=== PATIENT | male | born 1990 | race Caucasian/White ===

== ENCOUNTER 2017-01-16 10:58 | Emergency (ER) | payer SELFPAY ==
[~2017-01-16] VITALS: Ht 180.3 cm; Wt 114.6 kg
[2017-01-16 11:04] VITALS: TEMP 37.4; Ht 180.3 cm; Wt 114.6 kg
[2017-01-16 11:35] LABS: HEMATOCRIT 43.6 % (42-52); MEAN CELL VOLUME 84.3 fL (80-100); MEAN CORPUSCULAR HEMOGLOBIN 30.6 pg (25-34); MEAN CORPUSCULAR HGB CONC 36.2 g/dl (32-36); MEAN PLATELET VOLUME 9.6 fL (7.4-10.4); PLATELET COUNT 175 K/uL (130-400); RED BLOOD COUNT 5.17 M/uL (4.7-6.1); WHITE BLOOD COUNT 10.38 K/uL (4.8-10.8)
--- NOTE | 2017-01-16 11:43 | DIAGNOSTIC IMAGING REPORT ---
CHEST ONE VIEW PORTABLE CLINICAL HISTORY: cp dyspnea COMPARISON STUDY: No previous studies for comparison. FINDINGS: The bones soft tissues and hemidiaphragms are normal. The cardiomediastinal silhouette is normal. The lungs are clear. The pulmonary vasculature is normal. IMPRESSION: Negative chest. The above report was generated using voice recognition software. It may contain grammatical, syntax or spelling errors. Electronically signed by: Patric Rashid M.D. 01/16/2017 11:42 AM Dictated Date/Time: 01/16/2017 11:42 AM
[2017-01-16] MEDS ORDERED: ASPI81TA28 PO (11:44)
[2017-01-16 11:46] LABS: PROTHROMBIN TIME (PATIENT) 11.2 SECONDS (9.0-12.0)
[2017-01-16 11:53] LABS: BUN/CREATININE RATIO 13.1 (10-20); CALCIUM 8.9 mg/dl (8.5-10.1); CREATININE 0.98 mg/dl (0.60-1.40); POTASSIUM 3.8 mmol/L (3.5-5.1)
[2017-01-16 11:58] LABS: CKMB/CK RATIO 1.2 (0-3.0)
[2017-01-16] MEDS ORDERED: ALBUTEROL HFA 8 GM INHALER INH STA (12:08)
[2017-01-16] MEDS ORDERED: ALBUT/IPRATROP 3MG/0.5MG NEB 3 ML VIAL INH STA (12:08)
--- NOTE | 2017-01-16 12:10 | EMERGENCY ROOM VISIT NOTE ---
History Report prepared by Dexibe: Tami Geiger Under the Supervision of: Dr. Arnol Christensen M.D. First contact with patient: 12:03 Chief Complaint: CHEST PAIN Stated Complaint: CHEST PAINS, HYPERTENSION Nursing Triage Summary: Pt reports left sided cp x 2 days. Elevated bp. Denies sob. Denies dizziness/lightheadedness. Pt reports h/a yesterday because "I think I was hung over." History of Present Illness The patient is a 26 year old male who presents to the Emergency Room with complaints of intermittent sharp chest tightness that begun 2 days ago. The patient states that he called his PCP to get an appointment today and was referred to come to the ED. The patient was at work when an episode of his chest tightness begun and notes his blood pressure was high there as well. He notes an intermittent cough for the past couple days. The patient notes that he drank alcohol Monday but denies any drug use. The patient takes a baby Aspirin daily. Source of History: patient Onset: 2 days ago Position: chest Quality: other (tightness) Modifying Factors (Relieving): other (none) Associated Symptoms: + cough Review of Systems See HPI for pertinent positives & negatives. A total of 10 systems reviewed and were otherwise negative. Past Medical & Surgical Surgical Problems: (1) S/P tonsillectomy Family History Patient reports no known family medical history. Social History Smoking Status: Never Smoker Alcohol Use: occasionally Drug Use: none Marital Status: single Housing Status: lives with family Occupation Status: employed Current/Historical Medications Scheduled Aspirin (Aspirin Ec), 81 MG PO DAILY Allergies Coded Allergies: Diphenhydramine (Unverified Allergy, Unknown, HIVES, 01/16/17) Physical Exam Vital Signs Date Time Temp Pulse Resp B/P (MAP) Pulse Ox O2 Delivery O2 Flow Rate FiO2 01/16/17 12:22 75 20 157/79 100 Room Air 01/16/17 12:19 70 01/16/17 11:04 37.4 73 18 178/92 98 Room Air Physical Exam GENERAL: Patient is a healthy-appearing well-nourished male HEAD: Normocephalic atraumatic EYES: Ocular movements intact pupils equal and react to light OROPHARYNX mucous membranes are moist no exudates present no erythema or edema present NECK: Supple no nuchal rigidity CHEST: Good equal expansion LUNGS: Clear and equal to auscultation CARDIAC: Normal S1 and S2. ABDOMEN: Soft nontender no guarding BACK: No CVA tenderness EXTREMITIES: No pain upon palpation normal muscle strength in all groups no clubbing cyanosis or edema NEURO: Patient is following commands and answering questions appropriately. Alert and oriented x3 Cranial Nerves 2-12 grossly intact Medical Decision & Procedures ER Provider Diagnostic Interpretation: CHEST ONE VIEW PORTABLE CLINICAL HISTORY: cp dyspnea COMPARISON STUDY: No previous studies for comparison. FINDINGS: The bones soft tissues and hemidiaphragms are normal. The cardiomediastinal silhouette is normal. The lungs are clear. The pulmonary vasculature is normal. IMPRESSION: Negative chest. The above report was generated using voice recognition software. It may contain grammatical, syntax or spelling errors. Electronically signed by: Patric Rashid M.D. 01/16/2017 11:42 AM Dictated Date/Time: 01/16/2017 11:42 AM Laboratory Results 01/16/17 11:24 01/16/17 11:24 Test 01/16/17 11:24 01/16/17 11:30 Red Blood Count 5.17 M/uL (4.7-6.1) Mean Corpuscular Volume 84.3 fL (80-100) Mean Corpuscular Hemoglobin 30.6 pg (25-34) Mean Corpuscular Hemoglobin Concent 36.2 g/dl (32-36) RDW Standard Deviation 38.5 fL (36.4-46.3) RDW Coefficient of Variation 12.5 % (11.5-14.5) Mean Platelet Volume 9.6 fL (7.4-10.4) Prothrombin Time 11.2 SECONDS (9.0-12.0) Prothromb Time International Ratio 1.0 (0.9-1.1) Activated Partial Thromboplast Time 26.3 SECONDS (21.0-31.0) Partial Thromboplastin Ratio 1.0 Anion Gap 7.0 mmol/L (3-11) Est Creatinine Clear Calc Drug Dose 147.0 ml/min Estimated GFR () 122.8 Estimated GFR (Non- 106.0 BUN/Creatinine Ratio 13.1 (10-20) Calcium Level 8.9 mg/dl (8.5-10.1) Total Bilirubin 0.5 mg/dl (0.2-1) Aspartate Amino Transf (AST/SGOT) 24 U/L (15-37) Alanine Aminotransferase (ALT/SGPT) 33 U/L (12-78) Alkaline Phosphatase 80 U/L (45-117) Total Creatine Kinase 252 U/L (39-308) Creatine Kinase MB 3.0 ng/ml (0.5-3.6) Creatine Kinase MB Ratio 1.2 (0-3.0) Total Protein 7.7 gm/dl (6.4-8.2) Albumin 3.9 gm/dl (3.4-5.0) Globulin 3.8 gm/dl (2.5-4.0) Albumin/Globulin Ratio 1.0 (0.9-2) Bedside Troponin I < 0.030 ng/ml (0-0.045) Labs reviewed by ED physician. Medications Administered Medications (Trade) Dose Ordered Sig/Kelly Route Start Time Stop Time Status Last Admin Dose Admin Albuterol/ Ipratropium (Duoneb) 3 ml NOW STAT INH 01/16/17 12:08 01/16/17 12:10 DC 01/16/17 12:12 3 ML Albuterol (Ventolin Hfa Inhaler) 2 puffs NOW STAT INH 01/16/17 12:08 01/16/17 12:10 DC 01/16/17 12:13 2 PUFFS ECG Indication: chest pain Rate (beats per minute): 61 Rhythm: normal sinus Findings: no acute ischemic change, no ectopy ED Course 1205: Past medical records reviewed. The patient was evaluated in room C2B. A complete history and physical examination was performed. 1208: Albuterol 2 puffs INH, Duoneb 3 ml INH. 1220: Upon reexamination the patient is resting comfortably. I discussed results and treatment plan with the patient. He verbalizes agreement and understanding. The patient is ready for discharge. Medical Decision Differential diagnosis: Etiologies such as cardiac ischemia, aortic dissection, pulmonary embolism, pneumonia, pneumothorax, musculoskeletal, infections, pericarditis, myocarditis , esophageal rupture, gastrointestinal, as well as others were entertained. This is a 26-year-old male who presents emergency department complaining of chest pain. Patient describes the chest pain as twinges and is not reproducible on examination. As the chest pain has been ongoing for the past 2 days I would expect the patient's troponin to be elevated. As such it is not. In addition the patient has a normal CK and MB fraction as well as a normal EKG. The patient does admit to heavy drinking on Monday after being at a wedding and I suspect this has more to do with the patient's hypertension and perhaps his chest pain. He was given a DuoNeb breathing treatment and I will place the patient on albuterol inhaler. I strongly recommended that the patient follow-up with cardiology and stressed no strenuous activity until follow-up. Patient was in agreement with the treatment plan. As the patient's blood pressure is elevated here I will not place him on blood pressure medication until he follows up with his primary care physician as I suspect it may be elevated due to the patient's weekend activity. Medication Reconcilliation Current Medication List: was personally reviewed by me Blood Pressure Screening Patient's blood pressure: Elevated blood pressure Blood pressure disposition: Referred to PCP Impression Primary Impression: Substernal precordial chest pain Additional Impression: Hypertension Scribe Attestation The scribe's documentation has been prepared under my direction and personally reviewed by me in its entirety. I confirm that the note above accurately reflects all work, treatment, procedures, and medical decision making performed by me. Departure Information Dispostion Home / Self-Care Referrals No Doctor, Assigned (PCP) Forms HOME CARE DOCUMENTATION FORM, IMPORTANT VISIT INFORMATION Patient Instructions Chest Pain - [facility], Hypertension Kidney Disease, My [facility] Additional Instructions Follow up with Dr Lange's office this week. No strenuous activity until follow up. Increase fluid intake next 48 hours Use inhaler twice every 6 hours You were found to have an elevated blood pressure today (>120 sytolic or >90 diastolic). Per medicare guidelines, you need to follow up with this blood pressure screening with your Primary Care Physician (PCP). For a new PCP call [phone]. You have been examined and treated today on an emergency basis only. This is not a substitute for, or an effort to provide, complete comprehensive medical care. It is impossible to recognize and treat all injuries or illnesses in a single emergency department visit. It is therefore important that you follow up closely with your PCP. Call as soon as possible for an appointment. Thank you for your time and consideration. I look forward to speaking with you again soon. Please don't hesitate to call us if you have any questions. Problem Qualifiers Additional Impression: Hypertension Hypertension type: unspecified Qualified Codes: I10 - Essential (primary) hypertension
[2017-01-16 12:22] VITALS: BP 157/79; PULSE 75; O2SAT 100
== END 2017-01-16 12:45 | disposition home or self-care (01) ==
LOC: C.EDB 11:00 → C.EDC 12:45
DX: R07.2 Precordial pain (principal); I10 Essential (primary) hypertension; Z79.82 Long term (current) use of aspirin; Z98.890 Other specified postprocedural states; Z88.8 Allergy status to other drugs, medicaments and biological substances